=== PATIENT | male | born 1955 | race Caucasian/White ===

== ENCOUNTER 2023-06-16 07:48 | Day surgery (SDC) | payer MEDICARE, SELFPAY ==
[2023-05-26 14:39] VITALS: BMI 27.8
--- NOTE | 2023-06-10 12:10 | PM.HPGS ---
History of Present Illness History of Present Illness Consent: Risks, benefits, and alternatives have been discussed and questions answered. Patient agrees to proceed with procedure. Chief complaint: Neoplasm Screening Narrative: Ethan Swenson is a 67 year old male who is referred for colon cancer screening. this is his 1st colonoscopy. Review of Systems Review of Systems: All systems reviewed & are unremarkable except as noted in HPI and below PMFSH Past Medical History Medical History Hyperlipidemia Social History Social History Smoking status: Never smoker Alcohol intake: current Drinks per week: 7 Substance use type: does not use Living arrangements: with family Meds Home Medications and Allergies Home Medications Medication Instructions Recorded Confirmed Type Raquel 1 tab-cap PO DIRECTED 06/03/23 06/16/23 History Vitamin D3 1 tab-cap PO DIRECTED 06/03/23 06/16/23 History aspirin 81 mg tablet 81 mg PO DAILY 06/03/23 06/16/23 History atorvastatin 40 mg tablet 40 mg PO DIRECTED 06/03/23 06/16/23 History multivitamin 1 tablet PO DAILY 06/03/23 06/16/23 History vitamin B complex 1 tablet PO DAILY 06/03/23 06/16/23 History Allergies Allergy/AdvReac Type Severity Reaction Status Date / Time No Known Allergies Allergy Verified 06/16/23 08:10 Exam Resp: Auscultation: clear to auscultation bilaterally Cardio: Rate: regular rate Rhythm: regular rhythm GI: GI Palp: Yes Soft to palpation and No Tenderness to palpation present (GI) Assessment and Plan Assessment and plan (1) Colon cancer screening: Code(s): Z12.11 - Encounter for screening for malignant neoplasm of colon Status: Acute Assessment and Plan: Colonoscopy with possible biopsy or polypectomy or cautery or injection of substances.
--- NOTE | 2023-06-16 07:17 | P.PNAN_ITS ---
Anes - Initial Pre Proc Eval Procedure: Operation Date: 06/16/23 09:30 Proposed Procedures p Screening Colonoscopy - Jose Lemus MD Date/Time: 06/16/23 07:17 Surgeon: Jose Lemus MD Pre Op Diagnosis: Neoplasm Screening Patient Data Age: 67 Gender: M Height: 1.78 m Weight: 87.997 kg Allergies Allergy/AdvReac Type Severity Reaction Status Date / Time No Known Allergies Allergy Verified 06/16/23 08:10 Home Medications Medication Instructions Recorded Confirmed Type Raquel 1 tab-cap PO DIRECTED 06/03/23 06/16/23 History Vitamin D3 1 tab-cap PO DIRECTED 06/03/23 06/16/23 History aspirin 81 mg tablet 81 mg PO DAILY 06/03/23 06/16/23 History atorvastatin 40 mg tablet 40 mg PO DIRECTED 06/03/23 06/16/23 History multivitamin 1 tablet PO DAILY 06/03/23 06/16/23 History vitamin B complex 1 tablet PO DAILY 06/03/23 06/16/23 History Patient hx anesthesia problems: none Family hx anesthesia problems: none Results Review: All pre-operative results and documents have been reviewed as part of the pre- operative evaluation. [facility] Past Medical History Medical History (Updated 06/16/23 @ 07:18 by Jaime Brooks DO) Hyperlipidemia Social History Social History Smoking status: Never smoker Alcohol intake: current Drinks per week: 7 Substance use type: does not use Living arrangements: with family Anes - Eval Final PreProcedure Day of Procedure 06/16/23 07:17 Patient weight: overweight Heart: regular rate and rhythm Lungs: clear to auscultation Airway: Mallampati scale class II Neurological: alert and oriented Last oral intake: >/= 8 hours ASA classification: II Emergent: no Anesthetic plan: proceed Anesthesia type and monitoring: general GIVS and standard monitoring Results Review: All pre-operative results and documents have been reviewed as part of the pre- operative evaluation. Informed Consent: The patient's anesthetic plan and its attendant risks and benefits were discussed with the patient/family/POA. Questions were solicited and answers provided to the satisfaction of the patient/family/POA.
[2023-06-16 08:11] VITALS: BP 142/100; PULSE 75; RESP 18; TEMP 36.3; O2SAT 100
[2023-06-16] MEDS: LACTATED RINGERS 1,000 ML 150 ML IV CONT (08:13)
[2023-06-16 09:49] VITALS: BP 130/90; PULSE 77; RESP 16; O2SAT 92
[2023-06-16 09:59] VITALS: BP 129/91; PULSE 75; RESP 16; O2SAT 94
[2023-06-16 10:09] VITALS: BP 138/93; PULSE 70; RESP 18; O2SAT 95
--- NOTE | 2023-06-16 12:58 | WPDANESPN ---
Anes - Prog Note Post-Op Date/Time: 06/16/23 12:58 Cardiovascular status: normal Respiratory status: normal Airway patency: baseline Mental status: baseline Post-Op hydration status: normal Vital Signs: Last Vital Signs Temp 36.3 C L 06/16/23 08:11 Pulse 70 06/16/23 10:09 Resp 18 06/16/23 10:09 BP 138/93 H 06/16/23 10:09 Pulse Ox 95 06/16/23 10:09 O2 Del Method Room Air 06/16/23 10:09 Pain Score (VAS): 0 I/O: Intake & Output 06/15/23 06/16/23 06/16/23 23:59 07:59 15:59 Intake Total 500 Balance 500 Post-procedural complaints: none Patient Feedback: Patient satisfied with anesthetic care. Other Findings: Patient vital signs back to baseline. Patient denies nausea and vomiting. Patient's pain under control. Patient OK for discharge.
== END 2023-06-16 10:20 | disposition home or self-care (01) ==
PROVIDERS: PCP Internal Medicine; Visit Provider Internal Medicine Gastroenterology
PROC: 0DJD8ZZ Inspection of Lower Intestinal Tract, Via Natural or Artificial Opening Endoscopic (ICD-10-PCS; CPT 45378; principal; 2023-06-16 09:30)
DX: Z12.11 Encounter for screening for malignant neoplasm of colon (principal); K63.89 Other specified diseases of intestine; K57.30 Diverticulosis of large intestine without perforation or abscess without bleeding; K64.8 Other hemorrhoids
CPT/HCPCS: 45378

== ENCOUNTER 2023-06-16 10:45 | Outpatient (CLI) | payer MEDICARE, SELFPAY ==
[2023-06-16 19:10] LABS: Alanine Aminotransferase 59 U/L (6-50); Albumin Level 5.1 g/dL (3.5-5.1); Alkaline Phosphatase 84 U/L (38-126); Anion Gap 9 mmol/L (4-12); Aspartate Amino Transferase 56 U/L (17-59); Bilirubin,Total 1.3 mg/dL (0.2-1.3); Blood Urea Nitrogen 16 mg/dL (9-20); Carbon Dioxide 25 mmol/L (22-30); Chloride 109 mmol/L (98-107); Cholesterol 231 mg/dL (0-200); Estimated Glomerular Filt Rate 55; Glucose 125 mg/dL (65-110); HDL Direct 38 mg/dL; Potassium 4.9 mmol/L (3.4-5.0); Sodium 143 mmol/L (137-145); Triglycerides 326 mg/dL (<150)
[2023-06-16 19:23] LABS: LDL Cholesterol Direct 122 mg/dL
[2023-06-16 19:24] LABS: Hematocrit 56.5 % (42.0-52.0); Hemoglobin 17.6 g/dL (14.0-18.0); Mean Corpuscular HGB Conc 31.2 g/dl (32-36); Mean Corpuscular Hemoglobin 29.7 pg (26-34); Mean Corpuscular Volume 95.4 fl (80-100); Mean Platelet Volume 9.6 fl (7.4-10.4); Platelet Count Result 218 k/mm3 (150-375); Red Blood Count 5.92 M/mm3 (4.6-6.20); Red Cell Distribution Width 14.1 % (11.5-14.5); White Blood Count 5.9 K/mm3 (4.5-10.0)
[2023-06-16 19:36] LABS: Prostate Specific Antigen 3.3 ng/mL (< OR = 4.0)
[2023-06-16 19:49] LABS: Vitamin D 25 Hydroxy 39.6 ng/mL
== END 2023-06-16 10:46 | disposition home or self-care (01) ==
PROVIDERS: PCP Internal Medicine; Visit Provider Internal Medicine
DX: Z12.5 Encounter for screening for malignant neoplasm of prostate (principal); E78.5 Hyperlipidemia, unspecified; R53.83 Other fatigue; E55.9 Vitamin D deficiency, unspecified
CPT/HCPCS: 36415; 80053; 80061; 82306; 82607; 84153; 84443; 85027; G0103